=== PATIENT | male | born 1985 | race Caucasian/White ===

== ENCOUNTER 2020-08-11 22:59 | Emergency (ER) | payer BC ==
[~2020-08-11] VITALS: Ht 170.2 cm; Wt 108.4 kg
[2020-08-11 23:04] VITALS: Ht 170.2 cm; Wt 108.4 kg
[2020-08-12 00:48] LABS: BASOPHIL % 0.8 % (0.2-1.5); PLATELET COUNT 373 x10^3mcL (152-348); RED CELL DISTRIBUTION WIDTH 13.2 % (12.1-16.2)
[2020-08-12 01:06] LABS: CALCIUM 9.8 mg/dL (8.5-10.1); CHLORIDE SERUM 100 mmol/L (98-107); GFR1 > 60 mL/min; GLUCOSE SERUM 278 mg/dL (74-106); POTASSIUM SERUM 4.1 mmol/L (3.5-5.1); SODIUM SERUM 139 mmol/L (136-145)
[2020-08-12 01:12] LABS: ALBUMIN 4.1 g/dL (3.4-5.0); ALKALINE PHOSPHATASE 98 U/L (46-116); ALT/SGPT 254 U/L (16-63); AST/SGOT 110 U/L (15-37); BILIRUBIN TOTAL 0.7 mg/dL (0.20-1.00)
[2020-08-12 01:14] LABS: TOTAL PROTEIN, SERUM 9.1 g/dL (6.4-8.2)
[2020-08-12 01:55] LABS: FREE T4 0.92 ng/dL (0.76-1.46)
[2020-08-12 02:44] VITALS: BP 133/86
== END 2020-08-12 02:44 | disposition home or self-care (01) ==
LOC: ED 22:59
PROVIDERS: Emergency Medicine
DX: R00.2 Palpitations (principal); R00.0 Tachycardia, unspecified; I10 Essential (primary) hypertension
CPT/HCPCS: 84439